=== PATIENT | female | born 1940 | race Caucasian/White ===

== ENCOUNTER 2016-10-30 05:44 | Day surgery (SDC) | payer MEDICARE ==
[2016-10-30] VITALS (7 sets, daily range): BP systolic 136–163; BP diastolic 60–74; PULSE 50–71; RESP 13–16; TEMP 97.2–98; O2SAT 96–98; Ht 157.5 cm; Wt 96.6 kg
[~2016-10-30] VITALS: Ht 157.5 cm; Wt 96.6 kg
[~2016-10-30 05:44] MED LIST: ALPR0.5T PO; ATOR40TA64 PO; BUSP15TA3 PO; FLUO40CA7 PO; HYDR25TA PO; TRAM50TA4 PO
[2016-10-30 06:31] LABS: BASOPHILS % (AUTO) 0.6 % (0-2); EOSINOPHILS # (AUTO) 0.5 T/MM3 (0-0.5); EOSINOPHILS % (AUTO) 6.5 % (0-4); HCT - HEMATOCRIT 42.8 % (36-46); IMMATURE GRANULOCYTE # (AUTO) 0.01 T/MM3 (0.00-0.03); IMMATURE GRANULOCYTE % (AUTO) 0.1 % (0.0-0.5); LYMPHOCYTES # (AUTO) 3.3 T/MM3 (1-4.8); LYMPHOCYTES % (AUTO) 46.9 % (23-45); MEAN CORPUSCULAR HGB 31.7 UUG (26-34); MEAN CORPUSCULAR HGB CONC(MCHC 32.7 GM/DL (31-37); MEAN CORPUSCULAR VOLUME 96.8 UM3 (80-100); MEAN PLATELET VOLUME 9.2 UM3 (9.4-12.4); MONOCYTES # (AUTO) 0.6 T/MM3 (0-0.8); MONOCYTES % (AUTO) 7.7 % (0-9.0); NEUTROPHILS #(AUTO)-ABSOLUTE 2.7 T/MM3 (1.8-7.7); NEUTROPHILS % (AUTO) 38.2 % (33-66); RED BLOOD COUNT 4.42 M/MM3 (4.00-5.20); WBC - WHITE BLOOD COUNT 7.1 T/MM3 (4.5-11.0)
[2016-10-30 06:41] LABS: ANION GAP 13 MEQ/L (5-15); BUN/CREATININE RATIO 16 RATIO (6-26); CALCIUM 9.3 MG/DL (8.4-10.2); CHLORIDE 102 MEQ/L (98-107); CO2 - CARBON DIOXIDE 29 MEQ/L (22-30); CREATININE 1.1 MG/DL (0.7-1.2); GLOMERULAR FILTRATION RATE 49; GLUCOSE 116 MG/DL (65-110); POTASSIUM 3.5 MEQ/L (3.6-5); SODIUM 144 MEQ/L (134-144)
[2016-10-30] MEDS ORDERED: LR 1,000 ML IV SCH (07:00)
--- NOTE | 2016-10-30 07:12 | ANESPREOP ---
Anesthesia Record Date and Time DATE: 10/30/16 TIME: 07:08 Pre-Op Diagnosis Postmenopausal Bleeding Proposed Surgical Procedure HYSTEROSCOPY & D&C NPO since: [place] Allergies: Coded Allergies: latex (Verified Allergy, Unknown, SWELLING, RASH, 10/29/16) Uncoded Allergies: PCN (Adverse Reaction, Unknown, PASSED OUT- POSSIBLY RELATED TO PANIC ATTACK, 10/29/16) Ht/Wt/BMI Height: 5 ' 2.00 " Weight: 96.600 kg BMI: 39.0 kg/m2 Vital Signs Date Time Temp Pulse Resp B/P Pulse Ox O2 Delivery O2 Flow Rate FiO2 10/30/16 06:26 16 10/30/16 06:04 98.0 71 163/74 96 Room Air Medications Inpatient Medications Current Medications Medications (Trade) Dose Ordered Sig/Karri Start Time Stop Time Status Last Admin Dose Admin Lactated Ringer's (Lactated Ringers) 1,000 ml @ 125 mls/hr Q8H 10/30/16 07:00 10/30/16 06:39 125 MLS/HR Alprazolam (Xanax) 0.5 Mg Tablet, PO for ANXIETY, (Reported) Last Taken: on 10/29/162129 Atorvastatin Calcium (Atorvastatin Calcium) 40 Mg Tablet, 0.5 TAB PO HS, (Reported) Last Taken: on 10/29/16799 Buspirone HCl (Buspirone HCl) 15 Mg Tablet, 1 TAB PO TID, (Reported) Last Taken: on 10/29/162129 Fluoxetine HCl (Prozac) 40 Mg Capsule, 1 CAP PO DAILY, (Reported) Last Taken: on 10/29/16799 Hydrochlorothiazide (Hydrochlorothiazide) 25 Mg Tablet, 1 TAB PO WB, (Reported) Last Taken: on 10/29/16799 Tramadol HCl (Tramadol HCl) 50 Mg Tablet, 50 MG PO BID PRN for PAIN, (Reported) Last Taken: on 10/28/16 08 Currently on Beta Aditya: No Medical/Surgical History Anesthesia PMH: Reports: *Angina (EVALUATED BY CARDIOLOGY D/T PANIC ATTACKS), Pneumonia (HX), Reflux (OCC.), Denies: *Diabetes, Anesthesia Reactions (NO FAMILY HISTORY), Arthritis, Cancer, Clotting Problems, Glaucoma, Malignant Hyperthermia, Renal Disease, Sleep Apnea, Thyroid Disease Smoking Status: Never smoker Use Chewing Tobacco?: No Second Hand Exposure: No Substance Use Type: does not use Alcohol Intake: none HX of Last Menstrual Period: AROUND AGE 61'S Past Surgical History Orthopedic Surgeries: Abdominal Surgeries: Genitourinary Surgeries: Cardiac Surgeries: Endocrine Surgeries: Reproductive Surgeries: Yes - ENDOMETRIAL BX X3 Neurological Surgeries: Ear Surgeries: Nose Surgeries: Throat Surgeries: Other Surgeries: Yes - ENDOMETRIAL BX X3, COLONOSCOPY Anesthesia Adverse Reactions: FOUND none Family Hx of Anesthesia Advers: none Hx of Motion Sickness: Yes Pertinent Findings Laboratory Tests 10/30/16 06:22 EKG Rhythm: Sinus Bradycardia Physical Exam Respiratory: Bilat breath sounds equal, Lungs clear Cardiovascular: FOUND Regular rate, rhythm, FOUND No murmur Airway Assessment Mallampati Score: I TMD: 3 Fingerbreadths Teeth: Partial Upper Dentures Overall Assessment: No Airway Concerns ASA: 2 Plan Anesthesia Plan: TIVA Discussion Discussed risks/options/alternatives of anesthesia and questions answered. Patient consents. Nursing pain assessment noted. Present: Spouse Attestation Statement Prior to the delivery of any anesthetic medication, I examined the patient, developed the plan, obtained the patient's consent and discussed the risk and benefits of the procedure with the patient/guardian. EVANGELINA PENA CRNA Oct 30, 2016 07:12
[2016-10-30] MEDS ORDERED: MIDAZOLAM 2mg/2ml INJECTION IV ONE (07:15)
[2016-10-30] MEDS ORDERED: KETAMINE 500mg/10ml INJECTION ONE (07:24)
[2016-10-30] MEDS ORDERED: FENTANYL 100mcg/2ml INJECTION ONE (07:43)
[2016-10-30] MEDS ORDERED: PROPOFOL 200mg 20 ML IV ONE (07:54)
[2016-10-30] MEDS ORDERED: KETOROLAC 30mg/ml INJECTION ONE (08:01)
[2016-10-30 08:02] LABS: BLOOD, URINE NEGATIVE (NEGATIVE); COLOR,URINE YELLOW (YELLOW); LEUKOCYTE ESTERASE ,URINE NEGATIVE (NEGATIVE); NITRITE,URINE NEGATIVE (NEGATIVE); UROBILINOGEN,URINE 0.2 EU/DL (NORMAL)
--- NOTE | 2016-10-30 08:02 | GYNOPNOTE1 ---
COMMUNICATIONS SUPERINTENDENT Postoperative Note Date of Operation: 10/30/16 Preoperative Diagnosis: Postmenopausal Bleeding Postoperative Diagnosis: Same as Preoperative Procedure: Hysteroscopy with D&C Surgeon: Tasha Hearn MD Anesthesia Provider: Mckinley Cobb CRNA Anesthesia Type: TIVA Comments 20cc TASHA HEARN MD Oct 30, 2016 08:02
[2016-10-30] MEDS ORDERED: METOCLOPRAMIDE 10mg/2ml INJECTION IV PRN (08:15)
[2016-10-30] MEDS ORDERED: FENTANYL 100mcg/2ml INJECTION IV PRN (08:15)
[2016-10-30] MEDS ORDERED: HYDROCODONE/APAP 5 mg/325 mg TABLET PO PRN (08:15)
[2016-10-30] MEDS ORDERED: MORPHINE SULFATE 4 MG SYRINGE IV PRN (08:15)
[2016-10-30] MEDS ORDERED: ONDANSETRON 4mg/2ml INJECTION IV PRN (08:15)
--- NOTE | 2016-10-30 08:18 | ANESPO ---
Post-Op Note Date 10/30/16 Time: 08:17 Status Pt Participated in Evaluation: Pt participated in person Vital Signs Date Time Temp Pulse Resp B/P Pulse Ox O2 Delivery O2 Flow Rate FiO2 10/30/16 08:07 97.2 62 16 139/60 96 Mask 6.00 Respiratory Function: Airway patent, Regular respirations Cardiovascular Function: Regular pulse Telemetry Pattern: SB Mental Status: Alert/oriented Pain Level Intensity: 0 Hydration: IV infusing Complications during Recovery None apparent Follow-Up Instructions Instructions Per Surgeon EVANGELINA PENA CRNA Oct 30, 2016 08:17
--- NOTE | 2016-10-30 14:20 | OPNOTEF ---
DATE 10/30/2016 PREOPERATIVE DIAGNOSIS Postmenopausal bleeding. POSTOPERATIVE DIAGNOSIS Postmenopausal bleeding. PROCEDURES Diagnostic hysteroscopy, D&C. SURGEON Tasha Garrido MD ANESTHESIA TIVA ANESTHESIA Mckinley Cobb CRNA EBL 20 mL OPERATIVE FINDINGS Small fibroid protruding from the left corpus, otherwise smooth endometrium and normal cavity. DESCRIPTION OF PROCEDURE Ms. Martinez was brought to the OR and placed on the OR table in the comfortable supine position. She was given IV analgesia to good effect. She was then moved to the standard lithotomy position and I performed a bimanual exam. The perineum and vagina were prepped and draped in the usual sterile fashion. The bladder was drained with a sterile in-and-out catheter. The cervix was visualized with a freeway speculum. It was then grasped with an Allis clamp. The uterine cavity was sounded to a depth of 8 cm. The cervix was serially dilated until the 30 degree hysteroscope could be inserted. This was done and the cavity filled with water. Findings were as described above. I then removed the hysteroscope and curetted sharply in all four quadrants until basalis membrane was felt. I then inserted polyp forceps; a very minimal amount of tissue was obtained. I reinserted the hysteroscope and filled the cavity once again with fluid. The cavity was intact. Findings were as described above. There were no abnormalities. We removed the hysteroscope again and we observed carefully for hemostasis. This was under good control. We then removed our retractor and returned Ms. Martinez to the supine position. She was awakened and transferred to recovery in stable condition. DUSTY
== END 2016-10-30 09:17 | disposition home or self-care (01) ==
LOC: SCU 05:44
PROVIDERS: ATTEND Obstetrics & Gynecology
DX: D25.0 Submucous leiomyoma of uterus (principal); N85.8 Other specified noninflammatory disorders of uterus; N95.0 Postmenopausal bleeding; E80.4 Gilbert syndrome; F41.0 Panic disorder [episodic paroxysmal anxiety]; F32.9 Major depressive disorder, single episode, unspecified; E78.5 Hyperlipidemia, unspecified; I73.00 Raynaud's syndrome without gangrene
CPT/HCPCS: 36415; 58558; 80048; 81003; 85025; J1885; J2250; J2704; J3010; J7120